=== PATIENT | female | born 1960 | race Caucasian/White ===

== ENCOUNTER 2020-04-27 07:19 | Day surgery (SDC) | payer MEDICARE ==
[~2020-04-27] VITALS: Ht 157.5 cm; Wt 52.7 kg
[2020-04-27 08:00] LABS: HEMATOCRIT 45.6 % (36.0-48.0); HEMOGLOBIN 15.4 g/dL (12-16); LYMPHOCYTES 15.9 % (15-50); MCH 32.4 pg (26.0-34.0); MCHC 33.8 g/dL (31.0-37.0); MCV 95.8 fL (80.0-100.0); MEAN PLATELET VOLUME 8.3 fL (7.4-10.4); NEUTROPHILS 76.3 % (40-80); PLATELET COUNT 339 10x3/uL (130-400); RBC 4.76 10x6/uL (4.00-5.40); RDW 15.4 % (11.5-14.5)
[2020-04-27 08:08] LABS: CALC OSMOLALITY 275 mosm/kg (275-300); CALCIUM 8.3 mg/dL (8.5-10.1); CARBON DIOXIDE 26.9 mmol/L (21.0-32.0); CHLORIDE - SERUM 104 mmol/L (98-107); CREATININE - SERUM 0.8 mg/dL (0.6-1.3); GLUCOSE 96 mg/dL (74-106); POTASSIUM - SERUM 3.9 mmol/L (3.5-5.1); SODIUM 139 mmol/L (136-145); UREA NITROGEN 6 mg/dL (7-18); eGFR NON AFRICAN AMERICAN 77 mL/min (90-120)
[2020-04-27] MEDS ORDERED: HYDROCODONE-AC1 EAC2 PO (08:15)
[2020-04-27] MEDS ORDERED: ATIVAN1 MG PO (08:16)
[2020-04-27] MEDS ORDERED: LEXAPRO10 MG (08:16)
[2020-04-27] MEDS ORDERED: OMEPRAZOLE20 M1 PO (08:17)
[2020-04-27] MEDS ORDERED: RESTORIL15 MG PO (08:17)
[2020-04-27] MEDS ORDERED: ZANAFLEX2 M1 PO (08:17)
[2020-04-27] MEDS ORDERED: DEPAKOTE250 MG PO (08:18)
[2020-04-27] MEDS ORDERED: PROPRANOLOL HCL10 MG PO (08:19)
[2020-04-27] MEDS ORDERED: ANORO ELLIPTA1 EACH INH (08:19)
[2020-04-27] MEDS ORDERED: PHENERGAN25 M1 PO (08:20)
[2020-04-27] MEDS ORDERED: ZANAFLEX4 MG PO (08:20)
[2020-04-27 08:43] VITALS: BP 117/75; Ht 157.5 cm; Wt 52.7 kg
--- NOTE | 2020-04-27 10:42 | NUR ---
DC INSTRUCTIONS GIVEN TO PT. STATES UNDERSTANDING. DC'D IV CATH FULLY INTACT. WILL DC SHORTLY.
--- NOTE | 2020-04-27 10:56 | NUR ---
PT LEFT UNIT VIA WC AT 1041
--- NOTE | 2020-04-27 14:44 | OP ---
PATIENT NAME: MAUREEN JEWELL MEDICAL RECORD: [id number] :58 LOCATION:[facility] ADMISSION DATE: SURGEON: ANA LEE MD DATE OF OPERATION: 04/27/2020 PROCEDURE: Colonoscopy. PREOPERATIVE DIAGNOSES: History of polyps, rectal bleeding. MEDICATION: Propofol per anesthesia. DESCRIPTION OF PROCEDURE: Colonoscopy was performed. The colonoscope was inserted through the rectum and advanced to the cecum, identified by the ileocecal valve and the appendiceal orifice. The quality of the prep was good. There were 5 small sigmoid polyps. These were removed with cold biopsy forceps. There were a few sigmoid diverticula visualized. There were small nonbleeding internal hemorrhoids. The patient tolerated the procedure well. There were no immediate complications. FINAL DIAGNOSES: Five diminutive small sigmoid polyps removed with cold biopsy forceps, sigmoid diverticula, nonbleeding internal hemorrhoids. PLAN: Check histology results, advance diet, fiber supplements. Repeat colonoscopy in 1-2 years given numerous small polyps and previous history of polyps. TRANSINT:[id number] Voice Confirmation ID: [id number] DOCUMENT ID: [id number] ANA LEE MD at 1444 CC: [id number] DICTATION DATE: 04/27/20 0959 CARE TRAINER: 04/27/[address] [facility] 04/27/20 [id number] [place] [id number]
== END 2020-04-27 10:48 | disposition home or self-care (01) ==
LOC: D.OPS 07:19
PROVIDERS: Anesthesiology; ATTEND Internal Medicine Gastroenterology
DX: Z86.010 Personal history of colon polyps (principal); K63.5 Polyp of colon; K57.30 Diverticulosis of large intestine without perforation or abscess without bleeding; K64.8 Other hemorrhoids; R10.9 Unspecified abdominal pain; R19.4 Change in bowel habit; K92.1 Melena